=== PATIENT | female | born 1940 | race Caucasian/White ===

== ENCOUNTER 2021-01-13 17:14 | Emergency (ER) | payer MEDICARE, BC ==
[~2021-01-13] VITALS: Ht 152.4 cm; Wt 62.0 kg
[2021-01-13 18:59] LABS: BASOPHILS % (AUTO) 0.4 % (0-1); EOSINOPHILS # (AUTO) 0.2 X10'3 (0-0.9); EOSINOPHILS % (AUTO) 2.4 % (0-6); LYMPHOCYTES # (AUTO) 2.9 X10'3 (1.1-4.8); LYMPHOCYTES % (AUTO) 45.1 % (21-51); MEAN CORPUSCULAR HEMOGLOBIN 30.5 PG (27.0-31.0); MEAN CORPUSCULAR HGB CONC 33.3 g/dL (33.0-36.5); MEAN CORPUSCULAR VOLUME 91.4 FL (78-98); MEAN PLATELET VOLUME 8.4 FL (7.4-10.4); MONOCYTES # (AUTO) 0.8 X10'3 (0-0.9); MONOCYTES % (AUTO) 12.2 % (2-12); NEUTROPHILS # (AUTO) 2.6 X10'3 (1.8-7.7); NEUTROPHILS % (AUTO) 39.9 % (42-75); PLATELET COUNT 235 X10'3 (140-440); RED BLOOD COUNT 4.59 X10'6 (4.20-5.60); RED CELL DISTRIBUTION WIDTH 13.6 % (11.5-14.5); WHITE BLOOD COUNT 6.4 X10'3 (4.5-11.0)
[2021-01-13 19:13] LABS: ALANINE AMINOTRANSFERASE 19 U/L (12-78); ALBUMIN 3.7 G/DL (3.4-5.0); ALBUMIN/GLOBULIN RATIO 1.2 (1.1-1.5); ALKALINE PHOSPHATASE 102 IU/L (46-116); ANION GAP 13 (8-16); ASPARTATE AMINO TRANSFERASE 18 U/L (10-37); BILIRUBIN,TOTAL 0.3 MG/DL (0.1-1.0); BLOOD UREA NITROGEN 25 MG/DL (7-18); BUN/CREATININE RATIO 29.4 (6.6-38.0); CALCIUM 9.1 MG/DL (8.5-10.1); CHLORIDE 103 MMOL/L (99-107); CREATININE 0.85 MG/DL (0.40-0.90); GLUCOSE 106 MG/DL (70-104); POTASSIUM 3.8 MMOL/L (3.5-5.1); SODIUM 140 MMOL/L (135-145); TOTAL CARBON DIOXIDE 24.5 MMOL/L (24-32); TOTAL PROTEIN 6.9 G/DL (6.4-8.2); eGFR 64 ML/MIN
[2021-01-13 21:03] VITALS: BP 158/88
== END 2021-01-13 21:04 | disposition home or self-care (01) ==
LOC: ER 17:14
DX: R42 Dizziness and giddiness (principal); R55 Syncope and collapse; I10 Essential (primary) hypertension; Z95.0 Presence of cardiac pacemaker
CPT/HCPCS: 36415; 71045; 80053; 83880; 84484; 85025; 93005; 99285

== ENCOUNTER 2021-04-26 04:25 | Emergency (ER) | payer MEDICARE, BC ==
[~2021-04-26] VITALS: Ht 160 cm; Wt 64.0 kg
[2021-04-26 06:26] LABS: BASOPHILS % (AUTO) 0.7 % (0-1); EOSINOPHILS # (AUTO) 0.2 X10'3 (0-0.9); EOSINOPHILS % (AUTO) 2.9 % (0-6); HEMATOCRIT 40.2 % (35.0-45.0); HEMOGLOBIN 13.5 g/dl (12.0-16.0); LYMPHOCYTES # (AUTO) 1.8 X10'3 (1.1-4.8); MEAN CORPUSCULAR HEMOGLOBIN 30.9 PG (27.0-31.0); MEAN CORPUSCULAR HGB CONC 33.6 g/dL (33.0-36.5); MEAN CORPUSCULAR VOLUME 91.9 FL (78-98); MEAN PLATELET VOLUME 8.6 FL (7.4-10.4); MONOCYTES # (AUTO) 0.6 X10'3 (0-0.9); MONOCYTES % (AUTO) 11.1 % (2-12); NEUTROPHILS # (AUTO) 2.6 X10'3 (1.8-7.7); NEUTROPHILS % (AUTO) 50.3 % (42-75); PLATELET COUNT 228 X10'3 (140-440); RED BLOOD COUNT 4.37 X10'6 (4.20-5.60); RED CELL DISTRIBUTION WIDTH 13.7 % (11.5-14.5); WHITE BLOOD COUNT 5.2 X10'3 (4.5-11.0)
[2021-04-26 06:35] LABS: ALANINE AMINOTRANSFERASE 65 U/L (12-78); ALBUMIN 3.8 G/DL (3.4-5.0); ALBUMIN/GLOBULIN RATIO 1.2 (1.1-1.5); ALKALINE PHOSPHATASE 98 IU/L (46-116); ANION GAP 10 (8-16); ASPARTATE AMINO TRANSFERASE 29 U/L (10-37); BILIRUBIN,TOTAL 0.7 MG/DL (0.1-1.0); BLOOD UREA NITROGEN 18 MG/DL (7-18); BUN/CREATININE RATIO 20.5 (6.6-38.0); CHLORIDE 107 MMOL/L (99-107); CREATININE 0.88 MG/DL (0.40-0.90); GLUCOSE 98 MG/DL (70-104); POTASSIUM 4.1 MMOL/L (3.5-5.1); SODIUM 144 MMOL/L (135-145); TOTAL CARBON DIOXIDE 26.8 MMOL/L (24-32); TOTAL PROTEIN 7.1 G/DL (6.4-8.2); eGFR 61 ML/MIN
[2021-04-26 07:36] VITALS: BP 175/95
== END 2021-04-26 07:37 | disposition home or self-care (01) ==
LOC: ER 04:26
DX: R00.2 Palpitations (principal); I10 Essential (primary) hypertension; I25.2 Old myocardial infarction; I48.91 Unspecified atrial fibrillation; Z95.0 Presence of cardiac pacemaker
CPT/HCPCS: 36415; 71045; 80053; 83880; 84484; 85025; 93005; 99285

== ENCOUNTER 2022-01-16 05:30 | Day surgery (SDC) | payer MEDICARE, BC ==
[2022-01-09 11:00] LABS: BASOPHILS % (AUTO) 0.5 % (0-1); EOSINOPHILS # (AUTO) 0.1 X10'3 (0-0.9); EOSINOPHILS % (AUTO) 1.8 % (0-6); LYMPHOCYTES % (AUTO) 34.7 % (21-51); MEAN CORPUSCULAR HEMOGLOBIN 29.6 PG (27.0-31.0); MEAN CORPUSCULAR HGB CONC 33.3 g/dL (33.0-36.5); MEAN PLATELET VOLUME 8.3 FL (7.4-10.4); MONOCYTES # (AUTO) 0.5 X10'3 (0-0.9); MONOCYTES % (AUTO) 9.6 % (2-12); NEUTROPHILS % (AUTO) 53.4 % (42-75); PRE OP HEMATOCRIT 40.7 % (35.0-45.0); PRE OP HEMOGLOBIN 13.5 g/dL (12.0-16.0); PRE OP PLATELET COUNT 253 X10'3 (140-440); RED BLOOD COUNT 4.57 X10'6 (4.20-5.60); RED CELL DISTRIBUTION WIDTH 14.5 % (11.5-14.5)
[2022-01-09 11:14] LABS: APTT 28 SECONDS (22-32)
[2022-01-09 11:59] LABS: ALBUMIN 4.3 G/DL (3.4-5.0); ALBUMIN/GLOBULIN RATIO 1.4 (1.1-1.5); ALKALINE PHOSPHATASE 104 IU/L (46-116); BLOOD UREA NITROGEN 16 MG/DL (7-18); BUN/CREATININE RATIO 23.9 (6.6-38.0); CALCIUM 9.2 MG/DL (8.5-10.1); CHLORIDE 103 MMOL/L (99-107); CREATININE 0.67 MG/DL (0.40-0.90); PRE OP ALT 32 U/L (30-65); PRE OP ANION GAP 11 (8-16); PRE OP AST 30 U/L (10-37); PRE OP BILIRUB, TOTAL 0.7 MG/DL (0.0-1.0); PRE OP GLUCOSE 90 MG/DL (70-104); PRE OP POTASSIUM 4.6 MMOL/L (3.4-5.1); PRE OP SODIUM 140 MMOL/L (135-145); TOTAL CARBON DIOXIDE 25.6 MMOL/L (24-32); TOTAL PROTEIN 7.3 G/DL (6.4-8.2); eGFR 84 ML/MIN
[~2022-01-16] VITALS: Ht 160 cm; Wt 64.4 kg
[2022-01-16] VITALS (9 sets, daily range): BP systolic 159–171; BP diastolic 77–95
[~2022-01-16 05:30] MED LIST: AMLO2.5T5 PO; APIX5TAB3 PO; ATOR20TA66 PO; DOCUMENT DATE & TIME OF BETA-BLOCKER PO ONE; FLAX10007 PO; LATA2.5D14 EACHEYE; LEVO-144 PO; LISI10TA27 PO; METO-411 PO; NITR0.4T48 SL; POTA20TA34 PO; UBID10CA4 PO; cefazolin/dext.iso 2gm/50ml IV ONE; famotidine 20mg tablet PO ONE; ringers solution, lacted 1,000 ML IV SCH
[2022-01-16] MEDS ORDERED: LIDOcaine 1% (10mg/ml) 2ml vial ONE (05:55)
[2022-01-16] MEDS ORDERED: BUPIVAcaine 0.5% inj/PF 30 ml vial IJ ONE (07:00)
[2022-01-16] MEDS ORDERED: BUPIVAcaine 0.5% inj/PF 30 ML ONE (07:03)
[2022-01-16] MEDS ORDERED: morphine 2 MG/ML inj. syringe IV PRN ×2 (07:05→08:10)
[2022-01-16] MEDS ORDERED: ringers solution, lacted 1,000 ML IV SCH ×2 (07:05→08:10)
[2022-01-16] MEDS ORDERED: hydrALAZINE 20mg/ml inj. IV PRN (07:05)
[2022-01-16] MEDS ORDERED: labetalol 20mg/4ml (5mg/ml) syringe IV PRN (07:05)
[2022-01-16] MEDS ORDERED: fentaNYL/PF 50MCG/1 ML 2ML syringe IV PRN ×2 (07:05)
[2022-01-16] MEDS ORDERED: ondansetron/PF 4mg/2ml inj IV PRN ×2 (07:05→08:10)
[2022-01-16] MEDS ORDERED: morphine 4 MG/ML inj SYRINge IV PRN ×2 (07:05→08:10)
[2022-01-16] MEDS ORDERED: LIDOcaine 0.5% (5mg/ml) 50ml vial ONE (07:15)
[2022-01-16] MEDS ORDERED: FENTANYL CITRATE/PF 50 MCG/1 ML VIAL ONE (07:18)
[2022-01-16] MEDS ORDERED: MIDAZolam 1 MG/ML 5ML VIAL ONE (07:20)
--- NOTE | 2022-01-16 07:50 | NUR ---
Received from OR via BED, accompanied by Anesthesiologist and report given by Anesthesiologist. PATIENT WAKING UP, NO S/S OF PAIN, V/S WNL, SCD ON, 20G TO LUE, RIGHT WRIST DRESSING CDI W/ SLING. ICE AND ELEVATED RUE.
[2022-01-16] MEDS ORDERED: meperidine/PF 25mg/ml syringe IV PRN ×3 (08:10)
[2022-01-16] MEDS ORDERED: proCHLORperazine 10 MG/2 ml inj IV PRN (08:10)
--- NOTE | 2022-01-16 09:00 | NUR ---
PATIENT A&OX4, DENIES PAIN, V/S WNL, SCD OFF, 20G TO LUE D/C, RIGHT WRIST DRESSING CDI W/ SLING. ICE AND ELEVATED RUE. I HAVE REVIEWED D/C INSTRUCTIONS WITH PATIENT AND FAMILY AND THEY HAVE VERBALIZED UNDERSTANDING. PATIENT D/C HOME WITH ALL BELONGINGS AND GAVE TRANSPORT.
--- NOTE | 2022-01-16 10:34 | NUR ---
PIV INFILTRATED TO RIGHT HAND DOWN IN CT WHEN CONTRAST WAS ATTEMPTED TO INFUSE. PIV WAS REMOVED WITHOUT COMPLICATION HOWEVER THERE IS EDEMA IN HAND TO WRIST ON RIGHT ARM. NEW PIV STARTED 20G RIGHT AC. COMPRESS PLACED ON RIGHT ARM AND ELEVATED ON 2 PILLOWS. Addendum: 01/16/22 at 1036 by Joel Todd RN DISREGARD NOTE- DIFFRENT PATIENT
== END 2022-01-16 09:00 | disposition home or self-care (01) ==
LOC: PAS 05:30
PROVIDERS: ATTEND Orthopaedic Surgery Hand Surgery
DX: G56.01 Carpal tunnel syndrome, right upper limb (principal); I10 Essential (primary) hypertension; M19.90 Unspecified osteoarthritis, unspecified site; I48.91 Unspecified atrial fibrillation; Z20.822 Contact with and (suspected) exposure to COVID-19; Z79.01 Long term (current) use of anticoagulants; Z79.899 Other long term (current) drug therapy; Z90.710 Acquired absence of both cervix and uterus; Z98.890 Other specified postprocedural states; Z95.0 Presence of cardiac pacemaker; Z90.12 Acquired absence of left breast and nipple; Z72.89 Other problems related to lifestyle; Z86.73 Personal history of transient ischemic attack (TIA), and cerebral infarction without residual deficits; Z85.3 Personal history of malignant neoplasm of breast; Z85.828 Personal history of other malignant neoplasm of skin; Z86.19 Personal history of other infectious and parasitic diseases; Z82.49 Family history of ischemic heart disease and other diseases of the circulatory system
CPT/HCPCS: 36415; 64721; 80053; 82948; 85025; 85610; 85730; J2250; J3010; J3490; J7030; J7120; S0020; U0003; U0005; Z7506; Z7512; A4215; J0690

== ENCOUNTER 2025-02-03 09:48 | Day surgery (SDC) | payer MEDICARE, BC ==
[2025-01-30 11:00] LABS: BASOPHILS % (AUTO) 0.7 % (0-1); EOSINOPHILS # (AUTO) 0.1 X10'3 (0-0.9); EOSINOPHILS % (AUTO) 2.1 % (0-6); HEMOGLOBIN 11.9 g/dl (12.0-16.0); LYMPHOCYTES # (AUTO) 1.4 X10'3 (1.1-4.8); LYMPHOCYTES % (AUTO) 31.7 % (21-51); MEAN CORPUSCULAR HEMOGLOBIN 28.6 PG (27.0-31.0); MEAN CORPUSCULAR HGB CONC 32.1 g/dL (33.0-36.5); MEAN CORPUSCULAR VOLUME 89.3 FL (78-98); MEAN PLATELET VOLUME 8.5 FL (7.4-10.4); MONOCYTES # (AUTO) 0.5 X10'3 (0-0.9); MONOCYTES % (AUTO) 11.3 % (2-12); NEUTROPHILS # (AUTO) 2.4 X10'3 (1.8-7.7); NEUTROPHILS % (AUTO) 54.2 % (42-75); PLATELET COUNT 252 X10'3 (140-440); RED BLOOD COUNT 4.15 X10'6 (4.20-5.60); RED CELL DISTRIBUTION WIDTH 15.7 % (11.5-14.5); WHITE BLOOD COUNT 4.5 X10'3 (4.5-11.0)
[2025-01-30 11:15] LABS: APTT 29 SECONDS (22-32); INR 1.1 INR; PROTHROMBIN TIME 11.3 SECONDS (9.0-12.0)
[2025-01-30 11:26] LABS: ALBUMIN 3.9 G/DL (3.4-5.0); ANION GAP 6 (8-16); BLOOD UREA NITROGEN 15 MG/DL (7-18); BUN/CREATININE RATIO 21.4 (10.0-20.0); CALCIUM 8.9 MG/DL (8.5-10.1); CHLORIDE 106 MMOL/L (99-107); CHOL/HDL RATIO 2.1 (0.00-4.99); CHOLESTEROL 146 MG/DL (0-200); GLUCOSE 82 MG/DL (70-104); HDL CHOLESTEROL 70 MG/DL (35-60); LDL CHOLESTEROL 61 MG/DL (50-100); POTASSIUM 4.3 MMOL/L (3.5-5.1); SODIUM 141 MMOL/L (135-145); TOTAL CARBON DIOXIDE 29.5 MMOL/L (24-32); TRIGLYCERIDES 53 MG/DL (20-135); eGFR 79 ML/MIN
[~2025-02-03] VITALS: Ht 160 cm; Wt 62.8 kg
[2025-02-03] VITALS (9 sets, daily range): BP systolic 153–207; BP diastolic 81–110; PULSE 62–72; RESP 16; TEMP 98.1; O2SAT 92–96
[~2025-02-03 09:48] MED LIST changes: -DOCUMENT DATE & TIME OF BETA-BLOCKER PO ONE; -cefazolin/dext.iso 2gm/50ml IV ONE; -famotidine 20mg tablet PO ONE; -ringers solution, lacted 1,000 ML IV SCH
[2025-02-03] MEDS: diphenhydrAMINE 25mg capsule PO PRN (11:26)
[2025-02-03] MEDS: LORazepam 0.5 MG tablet PO PRN (11:26)
[2025-02-03] MEDS: normal saline 1,000 ML IV SCH (11:28)
[2025-02-03] MEDS ORDERED: SACU1TAB PO (11:44)
[2025-02-03] MEDS ORDERED: BUSP5TAB3 PO (11:44)
[2025-02-03] MEDS ORDERED: MULT-1085 PO (11:44)
[2025-02-03] MEDS ORDERED: fentaNYL/PF 50MCG/1 ML 2ML syringe ONE (12:37)
[2025-02-03] MEDS ORDERED: verapamil 2.5 mg/ml inj IV ONE (12:37)
[2025-02-03] MEDS ORDERED: heparin 1,000unit/ml 10ml vial 10 ML ONE (12:37)
[2025-02-03] MEDS ORDERED: midazolam 1 mg/ML 2ml injection ONE (12:37)
[2025-02-03] MEDS ORDERED: iohexol 350MG/ML 100ml bottle IV ONE (12:37)
[2025-02-03] MEDS ORDERED: LIDOcaine 1% (10mg/ml) 2ml vial ONE (12:37)
[2025-02-03] MEDS ORDERED: nitroGLYCERIN 500mcg/5mL D5W 5 ML IV ONE (12:41)
[2025-02-03] MEDS ORDERED: LIDOcaine 1% 30ml preserv. free vial ONE (13:17)
[2025-02-03] MEDS ORDERED: iohexol 350 MG/ML 50ML vial IV ONE (13:35)
[2025-02-03 13:36] LABS: ISTAT HGB ART 10.9 g/dl (12.0-16.0); ISTAT Hct ART 32 %PCV (35-45); ISTAT O2 SATURATION ARTERIAL 81 % (95-98); ISTAT SOURCE ART
[2025-02-03 14:17] LABS: ISTAT HGB MIX 10.9 g/dl (12.0-16.0); ISTAT Hct MIX 32 %PCV (35-45); ISTAT O2 SATURATION MIX VENOUS 57 % (60-80); ISTAT SOURCE VEN
[2025-02-03] MEDS ORDERED: HYDROcodone/acetaminophen 10/325mg tab PO PRN (14:45)
[2025-02-03] MEDS ORDERED: HYDROcodone/acetaminophen 5mg/325mg tablet PO PRN (14:45)
[2025-02-03] MEDS: sacubitril/valsartan 24mg-26mg tablet PO SCH (15:36)
[2025-02-04] MEDS ORDERED: metoprolol succinate 25mg (24-HOUR) SR. Tablet PO SCH (08:00)
== END 2025-02-03 16:30 | disposition home or self-care (01) ==
LOC: SSTAY O 09:48
PROVIDERS: ATTEND Student in an Organized Health Care Education/Training Program
DX: I35.0 Nonrheumatic aortic (valve) stenosis (principal); I25.10 Atherosclerotic heart disease of native coronary artery without angina pectoris; I10 Essential (primary) hypertension; E78.5 Hyperlipidemia, unspecified; I49.5 Sick sinus syndrome; Z79.01 Long term (current) use of anticoagulants; Z90.81 Acquired absence of spleen; Z79.82 Long term (current) use of aspirin; Z98.890 Other specified postprocedural states; Z85.828 Personal history of other malignant neoplasm of skin
CPT/HCPCS: 36415; 80048; 80061; 82803; 85014; 85025; 85610; 85730; 93005; 93456; A6258; A6402; C1751; C1894; J1644; J2003; J2250; J3010; J3490; J7030; Q0163; Q9967; Z7610; 99152; 99153

== ENCOUNTER 2025-03-12 08:11 | Outpatient (CLI) | payer MEDICARE, BC ==
[~2025-03-12 08:11] MED LIST changes: -AMLO2.5T5 PO; +BUSP5TAB3 PO; +IODIXANOL 320 MG/ML INFUS..BTL 100ML IV ONE; -LISI10TA27 PO; +MULT-1085 PO; +SACU1TAB PO
[2025-03-12 08:57] LABS: APTT 29 SECONDS (22-32); INR 1.1 INR; PROTHROMBIN TIME 11.4 SECONDS (9.0-12.0)
[2025-03-12 09:07] LABS: ALANINE AMINOTRANSFERASE 24 U/L (12-78); ALBUMIN 3.8 G/DL (3.4-5.0); ALBUMIN/GLOBULIN RATIO 1.4 (1.1-1.5); ALKALINE PHOSPHATASE 91 IU/L (46-116); ANION GAP 6 (8-16); ASPARTATE AMINO TRANSFERASE 20 U/L (10-37); BILIRUBIN,TOTAL 0.6 MG/DL (0.1-1.0); BLOOD UREA NITROGEN 20 MG/DL (7-18); BUN/CREATININE RATIO 26.7 (10.0-20.0); CALCIUM 8.6 MG/DL (8.5-10.1); CHLORIDE 105 MMOL/L (99-107); CREATININE 0.75 MG/DL (0.40-0.90); GLUCOSE 72 MG/DL (70-104); POTASSIUM 4.1 MMOL/L (3.5-5.1); PRO BRAIN NATRIURETIC PEPTIDE 824 PG/ML (0-450); SODIUM 140 MMOL/L (135-145); TOTAL CARBON DIOXIDE 28.8 MMOL/L (24-32); TOTAL PROTEIN 6.6 G/DL (6.4-8.2); eGFR 73 ML/MIN
[2025-03-12 09:20] LABS: BASOPHILS % (AUTO) 1.2 % (0-1); EOSINOPHILS # (AUTO) 0.1 X10'3 (0-0.9); EOSINOPHILS % (AUTO) 3.1 % (0-6); HEMATOCRIT 36.5 % (35.0-45.0); LYMPHOCYTES # (AUTO) 1.1 X10'3 (1.1-4.8); LYMPHOCYTES % (AUTO) 28.2 % (21-51); MEAN CORPUSCULAR HEMOGLOBIN 28.7 PG (27.0-31.0); MEAN CORPUSCULAR HGB CONC 32.8 g/dL (33.0-36.5); MEAN CORPUSCULAR VOLUME 87.4 FL (78-98); MEAN PLATELET VOLUME 8.4 FL (7.4-10.4); MONOCYTES # (AUTO) 0.5 X10'3 (0-0.9); MONOCYTES % (AUTO) 12.9 % (2-12); NEUTROPHILS # (AUTO) 2.1 X10'3 (1.8-7.7); NEUTROPHILS % (AUTO) 54.6 % (42-75); PLATELET COUNT 214 X10'3 (140-440); RED BLOOD COUNT 4.17 X10'6 (4.20-5.60); RED CELL DISTRIBUTION WIDTH 16.1 % (11.5-14.5); WHITE BLOOD COUNT 3.8 X10'3 (4.5-11.0)
--- NOTE | 2025-03-12 09:21 | RADIOLOGY REPORT ---
DI CHEST,TWO VIEWS CLINICAL HISTORY: TAVR, SOB COMPARISON: None TECHNIQUE: Frontal and lateral view of the chest was obtained FINDINGS: Lines and Tubes: Left-sided dual lead pacemaker Lungs: No focal consolidation. Pleura: No effusion. No pneumothorax. Cardiomediastinal contours: Unremarkable Bones: No acute osseous abnormality. IMPRESSION: No acute cardiopulmonary disease.
--- NOTE | 2025-03-13 14:27 | RADIOLOGY REPORT ---
Procedure: CT CTA TAVR Reason for study/Clinical History: Chest pain, evaluate for dissection. Comparison Study: None available at time of dictation. Exam Date: 03/12/2025 10:22 AM TECHNIQUE: Multiplanar reformatted images were generated from volumetric data acquired on a multidetector CT [facility]. Cardiac gating was utilized. Arterial phase images were obtained through the chest, abdomen and pelvis following intravenous administration of contrast material. 100 mL visipaque [address] dose reduction techniques were utilized. 3-D reconstructions were performed on an independent work station. Radiation Dose Information: CT Dose: CTDI volume is 65 mGy. Dose-length product is 1809 mGy*cm FINDINGS: Vascular: Aortic measurements: Aortic annulus: 25.9 x 21.6 mm Sinus of valsalva: right cusp 27.5 mm, left cusp 28.1 mm, non-coronary cusp 26.4 mm Right coronary distance: 12.1 Left coronary distance: 11.9 ST junction 24.2 mm Ascending aorta 33.4 mm Aortic arch 21 mm Descending aorta 23 mm Aortic hiatus 21 mm Upper abdominal aorta 18 mm Minimal abdominal aorta 11.4 mm Right common iliac 5.43 mm, tortuosity index 1.01 Left common iliac 5.68 mm, tortuosity index 1.11 There is normal caliber of aorta. No aortic dissection. Aortic arch anatomy is conventional. There is conventional coronary artery anatomy. Diffuse calcified atherosclerotic disease. No central pulmonary embolism. There is normal dimension of the main pulmonary artery. Heart is normal. There are no intracardiac filling defects. No pericardial effusion. Mediastinum: Subcentimeter mediastinal lymph nodes. Lungs: Streaky atelectasis and consolidation in the lung bases. Patchy ground-glass opacities in both lungs. Pleura: No effusion or pneumothorax. Chest wall: No acute abnormality. Abdomen and Pelvis: Liver: Normal in appearance. Gallbladder: Normal in appearance. Spleen: Normal in appearance. Pancreas: Normal in appearance. Adrenals: Normal in appearance. Kidneys: Normal in appearance. Bowel: Moderate sliding-type hiatal hernia. Sigmoid diverticulosis. No evidence of obstruction. Peritoneum: No free air or free fluid. Lymph nodes: No lymphadenopathy by CT size criteria. Pelvic structures: No pelvic mass. Bones: Dextroscoliosis with associated multilevel moderate to advanced degenerative disease. IMPRESSION: 1. TAVR planning with vascular measurements as described above. 2. Streaky atelectasis and consolidation in the lung bases. Patchy ground-glass opacities in both nils ngs. Consider follow-up chest CT in 3-6 months. Moderate size sliding-type hiatal hernia. Sigmoid di verticulosis. HS:Y
== END 2025-03-12 23:59 | disposition home or self-care (01) ==
LOC: RAD 08:11
PROVIDERS: ATTEND Internal Medicine Cardiovascular Disease
DX: K57.30 Diverticulosis of large intestine without perforation or abscess without bleeding (principal); I35.0 Nonrheumatic aortic (valve) stenosis; R06.02 Shortness of breath; I65.29 Occlusion and stenosis of unspecified carotid artery; K44.9 Diaphragmatic hernia without obstruction or gangrene; M41.86 Other forms of scoliosis, lumbar region; J98.11 Atelectasis; J18.1 Lobar pneumonia, unspecified organism; M51.34 Other intervertebral disc degeneration, thoracic region
CPT/HCPCS: 36415; 71046; 71275; 74174; 75572; 80053; 83880; 85025; 85610; 85730; Q9967

== ENCOUNTER 2025-03-19 08:11 | Outpatient (CLI) | payer MEDICARE, BC ==
[~2025-03-19 08:11] MED LIST changes: -IODIXANOL 320 MG/ML INFUS..BTL 100ML IV ONE
== END 2025-03-20 23:59 | disposition home or self-care (01) ==
LOC: TAVR 08:11
PROVIDERS: ATTEND Internal Medicine Cardiovascular Disease
DX: I35.0 Nonrheumatic aortic (valve) stenosis (principal); R06.02 Shortness of breath; I65.29 Occlusion and stenosis of unspecified carotid artery

== ENCOUNTER 2025-08-17 23:47 | Emergency (ER) | payer MEDICARE, BC ==
[~2025-08-17] VITALS: Ht 160 cm; Wt 56.8 kg
[~2025-08-17 23:47] MED LIST changes: -FLAX10007 PO; +FURO-150 PO; -LATA2.5D14 EACHEYE; +LATA2.5D7 EACHEYE; -LEVO-144 PO; +LEVO50TA8 PO
[2025-08-18 00:27] LABS: MEAN PLATELET VOLUME 8.2 FL (7.4-10.4); RED CELL DISTRIBUTION WIDTH 15.2 % (11.5-14.5)
[2025-08-18] MEDS: tranexamic acid 100mg/ml inj. TP STA (00:29)
[2025-08-18 00:34] LABS: APTT 29 SECONDS (22-32); INR 1.1 INR
[2025-08-18 00:47] LABS: CREATININE 0.82 MG/DL (0.40-0.90); TOTAL CARBON DIOXIDE 28.6 MMOL/L (24-32)
[2025-08-18 00:48] LABS: eCRCL 40 ML/MIN; eGFR 66 ML/MIN
[2025-08-18] MEDS: cocaine 4% topical solution 4ml bottle MM ONE (02:26)
[2025-08-18 03:27] VITALS: BP 124/78; PULSE 78; RESP 18; TEMP 98.6; O2SAT 98
--- NOTE | 2025-08-18 03:29 | Physician Documentation ---
History of Present Illness ~ Chief Complaint: Nose bleed Stated Complaint: BLOODY NOSE A BLS Time Seen by MD: 00:45 Primary Medical Doctor: Dr. Zuniga cardiology Mode of Arrival: EMS HPI Patient is here for a nosebleed. Started about an hour prior to arrival. Bleeding from the right nostril. She is on Eliquis for chronic AFib. No trauma. Medication Reconciliation Allergies: Coded Allergies: No Known Allergies (Unverified , 01/13/21) Scheduled Apixaban (Eliquis), 1 TAB PO BID, (Reported) Atorvastatin Calcium (Atorvastatin Calcium), 1 TAB PO DAILY, (Reported) Buspirone Hcl* (Buspar*), 1 TAB PO DAILY Levothyroxine Sodium (Levothyroxine Sodium), 1 TAB PO DAILY, (Reported) Metoprolol Succinate (Metoprolol Succinate), 1.5 TAB PO HS, (Reported) Multivitamin (Multi Vitamin Daily), 1 TAB PO DAILY, (Reported) Nitroglycerin (Nitroglycerin), 1 TAB SL PRN, (Reported) Potassium Bicarbonate/Cit AC (Effer-K 20 Meq Tablet Eff), 1 TAB PO DAILY, (Reported) Sacubitril/Valsartan (Entresto 24 mg-26 mg Tablet), 1 TAB PO BID, (Reported) Ubidecarenone (Co Q-10), 1 CAP PO DAILY, (Reported) Scheduled PRN Furosemide (Lasix), 1 TAB PO DAILY PRN for SOB or wheezing Miscellaneous Medications Latanoprost (Latanoprost), EACHEYE, (Reported) Discontinued Medications Flaxseed (Flaxseed Oil), 1 CAP PO DAILY, (Reported) Discontinued Reason: patient no longer taking Past Medical History Past Medical History: Atrial Fibrillation, Hypertension Past Surgical History: pacemaker Smoking Status: Never smoker Alcohol Use: None Drug Use: none Lives with: Spouse Lives In: Home Occupation: retired Physical Exam Vital Signs: Temperature: 98.6, Source: Temporal, Heart Rate: 82, Respiratory Rate: 18, BP: 126/82, Pulse Oximetry: 98, Weight: 56.820 Oxygen Flow Rate: 0 Physical Exam General: Awake and Alert, no acute distress. HEENT: Conjunctiva pink, Sclera clear, she has a nasal clamp on fairly good hemostasis there is a small blood vessel the to the anterior septum on the right side that is slowly bleeding. Neck: Supple Resp: Unlabored. Heart: Good perfusion Abdomen: Nondistended Extremities: No cyanosis,clubbing or edema. Skin: Warm and Dry. Neuro: no focal deficits Progress Results/Orders Results/Orders Completed Orders - YANG PAGAN MD Cbc/Diff (08/17/25 23:49) Pt Inr (08/17/25 23:49) PTT (08/17/25 23:49) CMP (08/17/25 23:49) Tranexamic Acid Inj. (Cyklokapron Inj.) (08/18/25 00:03) Silver Nitrate Applicator (Silver Nitrat (08/18/25 01:35) Cocaine 4% Topical Solution (Cocaine 4% (08/18/25 01:50) Medications Received in ER Medications (Trade) Dose Ordered Sig/Vangie Route PRN Reason Start Time Stop Time Status Last Admin Dose Admin (Cyklokapron inj.) 500 mg ONCE STAT TP 08/18/25 00:03 08/18/25 00:06 DC 08/18/25 00:29 500 MG Vital Signs 08/17/25 08/18/25 08/18/25 23:55 01:17 02:01 Temp 98.1 98.6 Pulse 99 82 Resp 16 18 B/P (MAP) 144/96 126/82 (97) Pulse Ox 96 98 O2 Flow Rate 0 Laboratory Tests Test 08/18/25 00:05 White Blood Count 5.4 Red Blood Count 4.19 L Hemoglobin 13.0 Hematocrit 38.2 Mean Corpuscular Volume 91.1 Mean Corpuscular Hemoglobin 31.0 Mean Corpuscular Hemoglobin Concent 34.0 Red Cell Distribution Width 15.2 H Platelet Count 221 Mean Platelet Volume 8.2 Neutrophils (%) (Auto) 51.2 Lymphocytes (%) (Auto) 32.3 Monocytes (%) (Auto) 13.4 H Eosinophils (%) (Auto) 2.4 Basophils (%) (Auto) 0.7 Neutrophils # (Auto) 2.7 Lymphocytes # (Auto) 1.7 Monocytes # (Auto) 0.7 Eosinophils # (Auto) 0.1 Basophils # (Auto) 0.0 CBC Comment Prothrombin Time 11.0 INR International Normalized Ratio 1.1 Activated Partial Thromboplast Time 29 Coagulation Comments Sodium Level 141 Potassium Level 4.2 Chloride Level 107 Carbon Dioxide Level 28.6 Anion Gap 5 L Blood Urea Nitrogen 30 H Creatinine 0.82 Estimated GFR/1.73 m2 66 BUN/Creatinine Ratio 36.6 H Glucose Level 117 H Calcium Level 8.7 Total Bilirubin 0.8 Aspartate Amino Transf (AST/SGOT) 25 Alanine Aminotransferase (ALT/SGPT) 47 Alkaline Phosphatase 139 H Total Protein 6.2 L Albumin 3.2 L Globulin 3.0 Albumin/Globulin Ratio 1.1 Chemistry Comments Medical Decision Making Findings Patient is here for epistaxis she is on Eliquis. Initially had the staff placed TXA on a cotton ball in her nostril while I was doing a procedure. So when I went to evaluate her she was bleeding but very slowly. I could see the blood vessel that has bleeding the anterior septum of the right nostril. So I anesthetized this area with topical cocaine. I then cauterized it with silver nitrate. This provided good hemostasis. Patient waited for 1/2 hour after hemostasis was achieved and then she is ambulatory and re-evaluation she is not bleeding and was discharged home. She was sent home with a nasal clamp to use for 30 minutes if she rebleeds. This is not an indication to stop her Eliquis. She had labs ordered at triage she will reassuring. She has a fan at night likely drying out her mucosa. Recommend that she keep the mucosa moist we talked about ways to do that. Departure Disposition: 01 HOME / SELF CARE / HOMELESS Impression: Primary Impression: Epistaxis Condition: Improved Discharge Instructions: Nosebleed, Adult Referrals: NO PRIMARY CARE PROVIDER (PCP) Education Educated: Patient Educated regarding: diagnosis, treatment, prognosis Signature Scribe Signature: no scribe Attestation: no YANG Bond MD Aug 18, 2025 03:28
== END 2025-08-18 03:40 | disposition home or self-care (01) ==
LOC: ER 23:48
DX: R04.0 Epistaxis (principal); I48.91 Unspecified atrial fibrillation; I10 Essential (primary) hypertension; Z88.8 Allergy status to other drugs, medicaments and biological substances; Z95.0 Presence of cardiac pacemaker; Z79.899 Other long term (current) drug therapy
CPT/HCPCS: 36415; 80053; 85025; 85610; 85730; 99283; J3490; 30901; 99284

== ENCOUNTER 2025-08-20 17:33 | Emergency (ER) | payer MEDICARE, BC ==
[~2025-08-20] VITALS: Ht 160 cm; Wt 59.2 kg
[~2025-08-20 17:33] MED LIST changes: -LATA2.5D7 EACHEYE; -POTA20TA34 PO
[2025-08-20 17:45] VITALS: TEMP 96.5
[2025-08-20 20:27] LABS: MEAN PLATELET VOLUME 8.4 FL (7.4-10.4); RED CELL DISTRIBUTION WIDTH 15.3 % (11.5-14.5)
[2025-08-20 20:35] LABS: CREATININE 0.83 MG/DL (0.40-0.90); TOTAL CARBON DIOXIDE 27.2 MMOL/L (24-32); eCRCL 40 ML/MIN; eGFR 65 ML/MIN
[2025-08-20 20:37] LABS: INR 1.0 INR
--- NOTE | 2025-08-20 20:38 | Physician Documentation ---
History of Present Illness ~ Chief Complaint: Nose bleed Stated Complaint: BLOODY NOSE Time Seen by MD: 20:50 Primary Medical Doctor: Dr. Zuniga cardiology HPI This 85-year-old female who is currently on blood thinners presents to emergency department due to 1 hour of nosebleed, patient reports this is her 4th episode of bloody nose in the past 10 days, patient reports that she required cauterization on last visit. Patient reports no recent trauma to nose. Patient reports no difficulty breathing. History as above. She has had a nose clamp on since arrival which is a proximally 3-1/2 hours. She is concerned because she does not want this nosebleed to prevent her from a cardiac procedure later this month. Medication Reconciliation Allergies: Coded Allergies: No Known Allergies (Unverified , 08/20/25) Scheduled Apixaban (Eliquis), 1 TAB PO BID, (Reported) Atorvastatin Calcium (Atorvastatin Calcium), 40 MG PO HS, (Reported) Buspirone Hcl* (Buspar*), 1 TAB PO DAILY Levothyroxine Sodium (Levothyroxine Sodium), 1 TAB PO DAILY, (Reported) Metoprolol Succinate (Metoprolol Succinate), 1.5 TAB PO HS, (Reported) Multivitamin (Multi Vitamin Daily), 1 TAB PO DAILY, (Reported) Nitroglycerin (Nitroglycerin), 1 TAB SL PRN, (Reported) Sacubitril/Valsartan (Entresto 24 mg-26 mg Tablet), 1 TAB PO BID, (Reported) Ubidecarenone (Co Q-10), 1 CAP PO DAILY, (Reported) Scheduled PRN Furosemide (Lasix), 1 TAB PO DAILY PRN for SOB or wheezing Discontinued Medications Flaxseed (Flaxseed Oil), 1 CAP PO DAILY, (Reported) Discontinued Reason: patient no longer taking Past Medical History Past Medical History: Atrial Fibrillation, Hypertension Past Surgical History: pacemaker Alcohol Use: None Drug Use: none Lives with: Spouse Lives In: Home Occupation: retired Review of Systems ROS As stated above in the HPI, otherwise all systems are reviewed and negative. Physical Exam Vital Signs: Temperature: 96.5, Source: Temporal, Heart Rate: 97, Respiratory Rate: 18, BP: 159/95, Pulse Oximetry: 95, Weight: 59.200 Oxygen Flow Rate: 0 Physical Exam General: Patient is awake, alert, oriented x4 in no acute distress Head: Normocephalic and atraumatic. Eyes: Conjunctival normal. EOMI. PERRL. ENT: Mucous membranes moist. Dried blood in right Blank. No blood in posterior pharynx Neck: Supple, trachea is midline. Chest: Clear to auscultation bilaterally without rales, rhonchi, or wheezes. There is no accessory muscle use or retractions. Cardiac: RRR without murmurs, gallops, or rubs. Progress Results/Orders Results/Orders Completed Orders - CRUZ OCONNELL MD Cbc/Diff (08/20/25 19:57) BMP (08/20/25 19:57) Pt Inr (08/20/25 19:57) Vital Signs 08/20/25 08/20/25 08/20/25 17:45 20:08 20:48 Temp 96.5 Pulse 90 97 Resp 18 16 B/P (MAP) 140/83 159/95 (116) Pulse Ox 95 O2 Flow Rate 0 Laboratory Tests Test 08/20/25 20:12 White Blood Count 6.6 Red Blood Count 4.27 Hemoglobin 12.8 Hematocrit 39.7 Mean Corpuscular Volume 93.0 Mean Corpuscular Hemoglobin 29.9 Mean Corpuscular Hemoglobin Concent 32.1 L Red Cell Distribution Width 15.3 H Platelet Count 224 Mean Platelet Volume 8.4 Neutrophils (%) (Auto) 62.2 Lymphocytes (%) (Auto) 24.1 Monocytes (%) (Auto) 11.4 Eosinophils (%) (Auto) 1.5 Basophils (%) (Auto) 0.8 Neutrophils # (Auto) 4.1 Lymphocytes # (Auto) 1.6 Monocytes # (Auto) 0.8 Eosinophils # (Auto) 0.1 Basophils # (Auto) 0.1 CBC Comment Prothrombin Time 10.6 INR International Normalized Ratio 1.0 Coagulation Comments Sodium Level 142 Potassium Level 4.1 Chloride Level 106 Carbon Dioxide Level 27.2 Anion Gap 9 Blood Urea Nitrogen 26 H Creatinine 0.83 Estimated GFR/1.73 m2 65 BUN/Creatinine Ratio 31.3 H Glucose Level 96 Calcium Level 8.8 Albumin 3.7 Chemistry Comments Medical Decision Making Findings Patient presented to the emergency room with epistaxis as per HPI. Patient was stating she felt weak and dizzy therefore there was concern for possible anemia therefore labs ordered which was reassuring for no anemia. Patient has responded to clamping and that has no blood in the posterior pharynx. Conservative management of epistaxis at home discussed. Departure Disposition: HOME / SELF CARE / HOMELESS Impression: Primary Impression: Epistaxis Condition: Stable Discharge Instructions: Nosebleed, Adult Referrals: NO PRIMARY CARE PROVIDER (PCP) Signature Scribe Signature: No scribe Attestation: The note accurately reflects work and decisions made by me.Cruz Oconnell MD 08/20/25 21:00 ZOYA CALVILLO Aug 20, 2025 20:38 CRUZ OCONNELL MD Aug 20, 2025 21:00
[2025-08-20 22:30] VITALS: BP 137/86; PULSE 86; RESP 16; O2SAT 96
[2025-08-26] MEDS ORDERED: FURO20TA4 PO (11:41)
[2025-08-26] MEDS ORDERED: FURO-149 PO (11:41)
[2025-08-26] MEDS ORDERED: ATOR40TA72 PO (11:42)
[2025-08-26] MEDS ORDERED: BUSP5TAB3 PO (11:44)
[2025-08-26] MEDS ORDERED: NITR0.4T51 SL (11:47)
[2025-08-26] MEDS ORDERED: METO-395 PO (11:47)
== END 2025-08-20 22:31 | disposition home or self-care (01) ==
LOC: ER 17:33
DX: R04.0 Epistaxis (principal); I48.91 Unspecified atrial fibrillation; I10 Essential (primary) hypertension; Z95.0 Presence of cardiac pacemaker; Z79.01 Long term (current) use of anticoagulants; Z79.899 Other long term (current) drug therapy
CPT/HCPCS: 36415; 80048; 85025; 85610; 99283

== ENCOUNTER 2025-08-27 05:15 | Inpatient (IN) | payer MEDICARE, BC ==
[2025-08-19 11:35] LABS: LEUKOCYTE ESTERASE ,URINE NEGATIVE (Neg); NITRITES, URINE NEGATIVE (Neg); OCCULT BLOOD,URINE TRACE-INTACT (Neg)
[2025-08-19 11:37] LABS: MEAN PLATELET VOLUME 8.0 FL (7.4-10.4); PRE OP HEMATOCRIT 38.5 % (35.0-45.0); PRE OP HEMOGLOBIN 12.9 g/dL (12.0-16.0); PRE OP PLATELET COUNT 241 X10'3 (140-440); PRE OP WHITE BLOOD COUNT 4.6 10'3 (4.8-10.8); RED CELL DISTRIBUTION WIDTH 15.4 % (11.5-14.5)
[2025-08-19 11:45] LABS: UA COLLECTION TYPE NON-SPECIFIED
[2025-08-19 11:48] LABS: MUCUS STRANDS FEW /LPF (Neg); RENAL CELLS, URINE FEW /HPF; SQUAMOUS EPITHELIAL CELL,UR MANY /LPF (FEW)
--- NOTE | 2025-08-19 11:50 | ELECTROCARDIOGRAPH REPORT ---
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 Magno Zuniga Measurements Intervals [place] Rate: 68 P: 64 WI: 212 QRS: -73 QRSD: 146 T: 95 QT: 492 QTc: 524 Interpretive Statements A-V dual-paced rhythm with some inhibition No further analysis attempted due to paced rhythm Electronically Signed On 08-20-2025 5:55:[address] Mgano Zuniga Please click the below link to view image of tracing.
[2025-08-19 11:53] LABS: PRE OP INR 1.1 INR; PRE OP PARTIAL THROMB. TIME 27.0 SECONDS (22-32); PRE OP PROTIME 11.0 SECONDS (9.0-12.0)
[2025-08-19 12:07] LABS: CREATININE 0.74 MG/DL (0.40-0.90); PRE OP ALT 44 U/L (30-65); PRE OP ANION GAP 8 (8-16); PRE OP AST 28 U/L (10-37); PRE OP BILIRUB, TOTAL 0.9 MG/DL (0.0-1.0); PRE OP GLUCOSE 82 MG/DL (70-104); PRE OP POTASSIUM 4.4 MMOL/L (3.4-5.1); PRE OP SODIUM 143 MMOL/L (135-145); TOTAL CARBON DIOXIDE 28.6 MMOL/L (24-32); eGFR 74 ML/MIN
[2025-08-19 12:16] LABS: PRO BRAIN NATRIURETIC PEPTIDE 5403 PG/ML (0-450)
--- NOTE | 2025-08-19 12:38 | RADIOLOGY REPORT ---
DI CHEST,TWO VIEWS CLINICAL HISTORY: Pain COMPARISON: DI CHEST,SINGLE VIEW on DOS: 08/13/25, DI CHEST,TWO VIEWS on DOS: 03/12/25, CHEST,SINGLE VIEW on DOS: 04/26/21, CHEST,SINGLE VIEW on DOS: 01/13/21 TECHNIQUE: Frontal and lateral view of the chest was obtained FINDINGS: Lines and Tubes: Cardiac pacemaker projects over left chest wall. Lungs: Small left pleural effusion and left retrocardiac opacity. Cardiomediastinal contours: Unremarkable. Atherosclerotic vascular calcifications of the thoracic aorta are noted. Bones: No acute osseous abnormality. IMPRESSION: Small left pleural effusion and left retrocardiac opacity.
[2025-08-26] MEDS: DOCUMENT DATE & TIME OF BETA-BLOCKER PO ONE (16:00)
[2025-08-27] VITALS (34 sets, daily range): BP systolic 111–193; BP diastolic 59–118; PULSE 67–84; RESP 10–22; TEMP 97.2–98.4; O2SAT 82–98
[~2025-08-27] VITALS: Ht 160 cm; Wt 61.1 kg
[~2025-08-27 05:15] MED LIST changes: -ATOR20TA66 PO; +ATOR40TA72 PO; -FURO-150 PO; +FURO20TA4 PO; +METO-395 PO; -METO-411 PO; -NITR0.4T48 SL; +NITR0.4T51 SL
[2025-08-27] MEDS ORDERED: ondansetron/PF 4mg/2ml inj IV PRN (05:30)
[2025-08-27] MEDS: ringers solution, lacted 1,000 ML IV SCH ×2 (06:24→09:25)
[2025-08-27] MEDS: vancomycin/NS 1 GM ADD-VANTAGE 250 ML IV ONE (06:24)
[2025-08-27] MEDS: ceFAZolin 2gm/dext,iso 50mL 50 ML IV ONE (06:25)
[2025-08-27] MEDS ORDERED: heparin 1,000 UNITS/NS 500ml 1,500 ML ONE (06:37)
[2025-08-27] MEDS ORDERED: LIDOcaine 1% 30ml preserv. free vial ONE (06:37)
[2025-08-27] MEDS ORDERED: midazolam 1 mg/ML 2ml injection ONE (07:16)
[2025-08-27] MEDS ORDERED: protamine sulfate 10mg/ml inj. ONE (07:27)
[2025-08-27] MEDS ORDERED: heparin 1,000unit/ml 10ml vial 10 ML ONE (07:38)
[2025-08-27] MEDS ORDERED: propofol inj 20 ML IV ONE (07:38)
[2025-08-27] MEDS ORDERED: iohexol 350 MG/ML 50ML vial IV ONE (08:29)
[2025-08-27] MEDS ORDERED: tirofiban 12.5mg in NS 250mL 0 ML IV ONE (08:34)
[2025-08-27] MEDS ORDERED: fentaNYL/PF 50MCG/1 ML 2ML syringe ONE (08:42)
[2025-08-27] MEDS ORDERED: APIX5TAB3 PO (08:44)
[2025-08-27] MEDS ORDERED: docusate sod 100mg capsule PO PRN (09:05)
[2025-08-27] MEDS ORDERED: HYDROcodone/acetaminophen 5mg/325mg tablet PO PRN (09:05)
[2025-08-27] MEDS ORDERED: potassium Cl 40MEQ/1/2NS 520ml 520 ML IV PRN (09:05)
[2025-08-27] MEDS ORDERED: pantoprazole 40mg Tablet.DR PO PRN (09:05)
[2025-08-27] MEDS ORDERED: labetalol 20mg/4ml (5mg/ml) syringe IV PRN (09:05)
[2025-08-27] MEDS ORDERED: potassium Cl 20mEq/100mL bag 100 ML IV PRN (09:05)
[2025-08-27] MEDS ORDERED: potassium CL 10mEq/100ml bag 100 ML IV PRN (09:05)
[2025-08-27] MEDS ORDERED: potassium Cl 40MEQ/270ML bag 250 ML IV PRN (09:05)
--- NOTE | 2025-08-27 09:13 | OPERATIVE REPORT ---
Operative Report Providers to CC CC: DIONNE ZUNIGA MD ~ Date of Procedure: Aug 27, 2025 Pre-Operative Diagnosis: Severe Aortic Stenosis Post-Operative Diagnosis SAME as PRE-Op Procedure Performed 1. Ultrasound-guided access, bilateral femoral vessels. 2. Bilateral femoral angiography. 3. Ascending aortography. 4. Temporary transvenous pacer to the RV apex. 5. Balloon Aortic Valvuloplasty with a 23mm balloon 6. Selective Coronary Angiography 7. Placement of a 23 mm Blakely S3 Resilia valve. Surgeon: Kristin Zuniga MD Instructional Technologist MD Dr. 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 They underwent general anesthesia. Ultrasound was used to guide access to the bilateral femoral vessels, 7-[place]izen [place] sheath, left femoral artery, 6-[place] sheath, right femoral artery and left femoral vein. Bilateral femoral angiograms were obtained. Heparin was given to maintain an ACT over 250 seconds. Two irvin-cross Perclose devices were placed on the right. We upsized to an 8- [place] sheath. Two pigtail catheters placed in the ascending aorta. Ascending aortography done to determine the angle of deployment. Temporary transvenous pacer to the RV apex and confirmed capture. We upsized an 8-[place] sheath to a 14-[place] Blakely eSheath on the right. We crossed the aortic valve using a straight stiff exchange length Terumo wire supported by a 6-[place] AL1 catheter. LV AO pressures were recorded. A Cook extra support wire was placed in the left ventricle. Next, a 23mm balloon was brought into position. The anomalous LCx artery was engaged with an MPA catheter. Under rapid ventricular pacing, the ba lloon was inflated(without dye). At full inflation, angiography was performed revealing some pinching but patent LCx. Subsequently, A 23 mm Blakely S3 Resilia valve was brought to position and under rapid right ventricular pacing was deployed. Post-procedure, the LCx was again engaged and revealed to be patent with minimal stenosis. There was trivial AI and no residual . Guidewires and balloons were removed at this time. The temporary pacer was removed. The 14- [place] Blakely eSheath was removed and the Perclose devices tied with adequate hemostasis. The arterial sheath on the left was removed and a single Perclose tied. The venous sheath on the left was removed and a single Angioseal used for hemostasis. Protamine was given to reverse the effects of heparin. The patient was stable post-procedure. Good pulses in the legs and no evidence of bleeding, transferred to the PACU in stable condition. HEMODYNAMICS: Pre: LV: 188/8 mmHg LVEDP: 15mmHg Ao: 144/73, MAP 103mmHg RESULTS: 1. Successful balloon aortic valvuloplasty with a 23 mm balloon. At full inflation, the anomalous LCx was still patent with ALEXANDRA III flow. 2. Successful placement of a 23 mm Blakely S3 Resilia valve, right transfemoral approach, two perclose devices. Repeat evaluation revealed 20-3% stenosis of the mid-LCx with ALEXANDRA III flow. Resume OAC in AM if no signs/symptoms of bleeding. 3. Hypertension: Resume if blood pressure remains stable 4. SSS: s/p PPM, OAC as above 5. 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 Mild narrowing post valve placement. Patient will be watched in the recovery area until stable, then transferred to telemetry at that time. KRISTIN ZUNIGA MD Aug 27, 2025 09:13
[2025-08-27] MEDS: nitroPRUSSIDE (NIPRIDE) (200MCG/ML) 100ML Drip IV SCH (09:25)
[2025-08-27] MEDS: normal saline 1000ml 1,000 ML IV SCH (09:26)
[2025-08-27] MEDS: phenylephrine inj 50 MG in normal saline 250ml IV solN IV SCH (09:43)
[2025-08-27] MEDS: labetalol 20mg/4ml (5mg/ml) syringe IV PRN (09:50)
--- NOTE | 2025-08-27 10:00 | ELECTROCARDIOGRAPH REPORT ---
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 Tyrone Burton Measurements Intervals [place] Rate: 71 P: 48 NV: 201 QRS: -71 QRSD: 161 T: 100 QT: 521 QTc: 567 Interpretive Statements A-V dual-paced complexes w/ some inhibition No further analysis attempted due to paced rhythm Electronically Signed On 08-28-2025 8:46:[address] Tyrone Burton Please click the below link to view image of tracing.
[2025-08-27] MEDS: hydrALAZINE 20mg/ml inj. IV PRN ×2 (10:15→12:36)
[2025-08-27] MEDS: morphine 4 MG/ML inj SYRINge IV PRN (11:00)
[2025-08-27] MEDS: ALPRAZolam 0.25mg tablet PO PRN (11:09)
[2025-08-27] MEDS: enalaprilat 1.25mg/ml 2ml vial IV ONE (11:26)
[2025-08-27] MEDS: ondansetron/PF 4mg/2ml inj IV PRN ×2 (11:32→13:39)
[2025-08-27] MEDS: hydrALAZINE 20mg/ml inj. IV ONE (12:00)
[2025-08-27] MEDS: midazolam 1 mg/ML 2ml injection IV ONE (12:00)
[2025-08-27] MEDS: sod chloride 0.9% 10ml flush syringe IV SCH (16:47)
[2025-08-27] MEDS: ceFAZolin 1GM/D5W- ADD-VANTAGE 50 ML IV SCH (16:47)
--- NOTE | 2025-08-27 16:51 | CARDIOLOGY REPORT ---
APPROVED REPORT EXAM: Focused, limited intraprocedural transthoracic 2D, spectral and color flow Doppler echocardiogram during TAVR deployment. 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 / Surgeon: Tyree Davison MD. / Device rep: Karson Escobar ELS Previous echo: 01/14/25 CVC unk 60% EF ; OLIVER 0.6 ; peak v 4.36 ; grad 70/50 ; LVOT 1.97 ; VHD m-mod TR MR m-mod MAC ; mod LVH ; sept knuckle LEFT VENTRICLE LV appears normal in size with moderate concentric hypertrophy. Overall systolic function appears mildly reduced. LVEF is 45-50%. RIGHT VENTRICLE RV appears severely dilated with normal contractility. Pacemaker wire in right heart. RVSP 58mmHG. AORTIC VALVE Trileaflet AV appears severely calcified with significant stenosis demonstrated by reduced excursion and increased transvalvular and ascending aorta turbulance. Significant calcification of the LVOT. OLIVER: 0.4 cmsq; Pkv: 5.13 m/sec; Gradients: 106/68 mmHG. Trace insufficiency. BAV: 23MM JEFFY balloon x 2 dilitations. POST DEPLOYMENT (LOOP: 47): 23 mm Blakely Ramona 3 Ultra Resilia bioprosthetic TAVR appears well seated with normal function. Multiple trace paravalvular leaks present at 1, 5. 6, 12 o'clock in TTE SAX BASE. OLIVER is measured at 2.34 cmsq. Peak / mean gradients of 11 / 6 mmHG. Peak velocity is measured at 1.77 m/sec. MITRAL VALVE MV is thickened with moderate annular calcification and no significant stenosis. Trace mitral regurgitation. TRICUSPID VALVE The tricuspid valve is normal in structure. Moderate tricuspid regurgitation. PERICARDIUM There is no pericardial effusion. Other Information Study Quality: Adequate
[2025-08-27] MEDS ORDERED: LATA2.5D7 EACHEYE (19:41)
[2025-08-27] MEDS: vancomycin/NS 1 GM ADD-VANTAGE 250 ML IV SCH (19:46)
[2025-08-27] MEDS: sacubitril/valsartan 24mg-26mg tablet PO SCH (19:47)
[2025-08-27] MEDS: metoprolol succinate 25mg (24-HOUR) SR. Tablet PO SCH (21:41)
[2025-08-27] MEDS: latanoprost 0.005% 2.5ml ophthalmic drops EACHEYE SCH (21:46)
[2025-08-28 02:00] VITALS: BP 116/61; PULSE 74; RESP 16; TEMP 97.6; O2SAT 92
--- NOTE | 2025-08-28 06:49 | ELECTROCARDIOGRAPH REPORT ---
[facility] Test Date: 2025-08-28 Test Time: 06:47:33 Pat Name: OTILIO MELGOZA Department: [facility] Room: [place] [address] B Gender: F Director Of Instruction: MARILEE : 1940 Requested By: KRISTIN EMANUEL Order Number: [id number] Reading MD: Dr. KAMILAH Gary Measurements Intervals [place] Rate: 73 P: 67 MN: 210 QRS: -76 QRSD: 150 T: 104 QT: 487 QTc: 537 Interpretive Statements Atrial-sensed ventricular-paced rhythm No further analysis attempted due to paced rhythm Electronically Signed On 08-28-2025 18:04:[address] KAMILAH Gary Please click the below link to view image of tracing.
[2025-08-28 07:00] VITALS: BP 136/69; PULSE 71; RESP 18; TEMP 98.7; O2SAT 93
--- NOTE | 2025-08-28 07:39 | RADIOLOGY REPORT ---
CHEST RADIOGRAPH Indication: s/p TAVR Technique: Single frontal view of the chest was obtained Comparison: DI CHEST,TWO VIEWS on DOS: 08/19/25 FINDINGS: Lines and Tubes: Dual-chamber pacemaker noted. Lungs: Bibasilar airspace disease. Pleura: No effusion. No pneumothorax. Cardiomediastinal contours: Cardiomegaly. Status post TAVR. Bones: No acute osseous abnormality. IMPRESSION: 1. Cardiomegaly. 2. Bibasilar airspace disease.
[2025-08-28 07:48] LABS: MEAN PLATELET VOLUME 8.7 FL (7.4-10.4); RED CELL DISTRIBUTION WIDTH 15.4 % (11.5-14.5)
[2025-08-28 08:00] VITALS: RESP 18; O2SAT 96
[2025-08-28] MEDS ORDERED: non-formulary drug (Ubidecarenone (Co Q-10) 1 CAP) PO SCH (08:00)
[2025-08-28] MEDS: levoTHYROXINE 25mcg tablet PO SCH (08:16)
[2025-08-28] MEDS: multivitamins, therapeutics tablet PO SCH (08:17)
[2025-08-28 08:24] LABS: CREATININE 0.73 MG/DL (0.40-0.90); PRO BRAIN NATRIURETIC PEPTIDE 3554 PG/ML (0-450); TOTAL CARBON DIOXIDE 27.1 MMOL/L (24-32); eCRCL 45 ML/MIN; eGFR 75 ML/MIN
[2025-08-28] MEDS: magnesium sulf-water 2g/50mL 50 ML IV PRN (09:55)
[2025-08-28] MEDS: potassium Cl 20 mEq SR tablet PO PRN (09:55)
[2025-08-28 11:00] VITALS: BP 109/50; PULSE 74; RESP 19; TEMP 97.2; O2SAT 94
[2025-08-28 11:58] VITALS: O2SAT 98
[2025-08-28] MEDS: magnesium sulf-water 4G/100mL 100 ML IV PRN (12:08)
--- NOTE | 2025-08-28 14:59 | DISCHARGE SUMMARY ---
Discharge Summary Providers to CC ~ Discharge Summary Admission Diagnosis: Severe Aortic Stenosis Hospital Course DATE OF ADMISSION: 08/27/25 DATE OF DISCHARGE: 08/28/25 Discharge Diagnosis\Comment: Severe aortic stenosis status post TAVR Operations\Procedures: 1. Ultrasound-guided access, bilateral femoral vessels. 2. Bilateral femoral angiography. 3. Ascending aortography. 4. Temporary transvenous pacer to the RV apex. 5. Balloon Aortic Valvuloplasty with a 23mm balloon 6. Selective Coronary Angiography 7. Placement of a 23 mm Blakely S3 Resilia valve. Consultants: No consultants Complications: No complications Condition on DC: Stable Continued Medications: Apixaban (Eliquis) 5 Mg Tablet 1 TAB PO Q12H for 30 Days, #60 TAB 0 Refills Atorvastatin Calcium (Atorvastatin Calcium) 40 Mg Tablet 1 TAB PO HS Buspirone Hcl* (Buspar*) 5 Mg Tablet 1 TAB PO DAILY Furosemide (Furosemide) 20 Mg Tablet 1 TAB PO DAILY PRN for EDEMA Latanoprost (Latanoprost) 0.005 % Drops 1 DROP EACHEYE HS Levothyroxine Sodium (Levothyroxine Sodium) 50 Mcg Tablet 1 TAB PO DAILY Metoprolol Succinate (Metoprolol Succinate) 25 Mg Tab.sr.24h 150 MG PO HS Multivitamin (Multi Vitamin Daily) 1 Each Tablet 1 TAB PO DAILY for 30 Days, #30 TAB 0 Refills Nitroglycerin SL* (Nitrostat SL*) 0.4 Mg Tablet 1 TAB SL Q5MIN PRN for Chest pain Q5min PRNx3-call Sacubitril/Valsartan (Entresto 24 mg-26 mg Tablet) 24 Mg-26 Mg Tablet 1 TAB PO BID Ubidecarenone (Co Q-10) 10 Mg Capsule 1 CAP PO DAILY, CAP 0 Refills Discharge Summary: Patient with known aortic stenosis presented for planned TAVR. Underwent placement of a 23 mm Blakely S3 resilient valve via the right transfemoral approach. Please see Dr. Fermin Zuniga's dictation for further details on the procedure. Patient was monitored overnight in the telemetry unit. She has remained hemodynamically stable. Up and ambulatory with no complaints of chest pain, pressure, shortness for breath, dizziness, lightheadedness or syncope. Postoperative testing was reviewed by Dr. Fermin Payton and she was deemed stable for discharge home. Physical exam prior to discharge: General: Awake, alert, oriented. No apparent distress Neck: Supple. Normal range of motion. No JVD Respiratory: Lungs are clear to auscultation bilaterally. No respiratory distress. Chest: Normal shape and size. No accessory muscle use. Cardiovascular: Regular rate and rhythm. S1-S2. No murmur, gallop, rub. Gastrointestinal: Abdomen is soft. Nontender to palpation. Bowel sounds present. Extremities: No lower extremity edema, cyanosis or clubbing. Bilateral femoral cath sites with dressings clean dry and intact. No ecchymosis or swelling. No hematoma. Neurologic: Alert and oriented x4. Nonfocal Psychiatric: Normal mood and affect. Skin: Normal color. Warm and dry. Case discussed with Dr. Fermin Zuniga. In agreement with discharge home. *Problems/Diagnosis: (1) Coronary artery disease (2) Hypertension (3) Sick sinus syndrome (4) Aortic stenosis Status: Chronic Total Time Spent on D/C: Up to 30 Minutes Counseling Services Smoking & Tobacco Cessation: N/A MILAGROS WEINBERG NP Aug 28, 2025 14:59
--- NOTE | 2025-08-28 19:36 | CARDIOLOGY REPORT ---
APPROVED REPORT EXAM: Limited 2D, Doppler, and color-flow Echocardiogram. Patient Location: [facility] Blood Pressure: 136/69 mmHg Heart Rate: 72 bpm Rhythm: Paced Indications ONE DAY FOLLOW-UP TAVR 23 mm Blakely Ramona 3 Ultra RESILIA Bioprosthetic TAVR Pacemaker Plant Utility Person: Georgina Zuniga MD Previous echo 08/27/25 [facility] EF 45-50; OLIVER 2.34; Peak v 1.77; Grad 11/6 2D Dimensions LVOT Diameter 2.29 (1.8-2.4cm) IVC 19.96 mm Aortic Valve AoV Peak [place]. 220.3 cm/s AoV VTI 47.6 cm AO Peak GR. 19.4 mmHg AO Mean GR. 11 mmHg LVOT VTI 27.14 cm LVOT Peak [place]. 130.6 cm/s OLIVER(VTI)/BSA 2.35 cm2/m2 OLIVER (VTI) 2.35 cm2 AV DI 0.57 % Mitral Valve MV Peak Gr. 6 mmHg MV PHT 76 ms MVA (PHT) 2.89 cm2 MV VMax 121.1 cm/s Tricuspid Valve TR P. Velocity 349 cm/s RAP ESTIMATE 15 mmHg TR Peak Gr. 49 mmHg RVSP 64 mmHg LEFT VENTRICLE LV appears normal in size with moderate concentric hypertrophy. Overall systolic function appears normal. LVEF is 55%. RIGHT VENTRICLE RV appears moderately dilated with normal contractility. Pacemaker wire in right heart. RVSP is estimated at 64 mmHG. AORTIC VALVE 23 mm Blakely Ramona 3 Ultra RESILIA Bioprosthetic TAVR appears well seated. OLIVER: 2.35 cmsq; Pkv: 2.20 m/sec; Gradients: 19/11 mmHG. Trace paravalvular leak noted at 1, 5 and 7 oclock PSAX TTE. MITRAL VALVE MV is thickened with moderate annular calcification and no stenosis. Trace to mild mitral regurgitation. TRICUSPID VALVE The tricuspid valve is normal in structure. Moderate to severe tricuspid regurgitation. GREAT VESSELS IVC is normal in size and collapses less than 50% with inspiration. PERICARDIUM There is no pericardial effusion. Other Information Study Quality: Adequate Conclusion LV appears normal in size with moderate concentric hypertrophy. Overall systolic function appears normal. LVEF is 55%. RV appears moderately dilated with normal contractility. Pacemaker wire in right heart. RVSP is estimated at 64 mmHG. 23 mm Blakely Ramona 3 Ultra RESILIA Bioprosthetic TAVR appears well seated. OLIVER: 2.35 cmsq; Pkv: 2.20 m/sec; Gradients: 19/11 mmHG. Trace paravalvular leak noted at 1, 5 and 7 oclock PSAX TTE. MV is thickened with moderate annular calcification and no stenosis. Trace to mild mitral regurgitation. The tricuspid valve is normal in structure. Moderate to severe tricuspid regurgitation. There is no pericardial effusion.
--- NOTE | 2025-09-04 07:03 | OPERATIVE REPORT ---
Operative Report Providers to CC CC: KRISTIN ZUNIGA MD; LEONCIO PAYTON MD ~ Date of Procedure: Aug 27, 2025 Pre-Operative Diagnosis: Severe Aortic Stenosis, anomalous left circumflex coronary artery Post-Operative Diagnosis SAME as PRE-Op Procedure Performed 1. Transcatheter aortic valve replacement with 23 mm Blakely S3 Resilia valve model [id number] 2. Ultrasound-guided micropuncture access to femoral vessels for sheath placement: 6 Italian sheath right femoral artery later upsized to 14 Italian E sheath, 7 Italian sheath left femoral artery, 6 Italian sheath left femoral vein 3. Bilateral femoral angiography 4. Ascending aortography 5. Temporary transvenous pacemaker to right ventricular apex placement and later removal 6. Balloon Aortic Valvuloplasty with a 23mm balloon 7. Selective Coronary Angiography Surgeon: Frank Davison MD, PhD, [facility] [employer] Plant Operators Supervisor Interventional cardiologists: 1. Kristin Zuniga MD 2. Leoncio Payton MD Anesthesiologist: Iam Talbot Type of Anesthesia: General Findings: Severe Aortic Stenosis Anomalous left circumflex coronary artery Complications None Prosthetics\Implants used: 23 mm Blakely Ramona 3 Resilia TAVR valve Estimated Blood Loss: Minimal Specimen Removed: None Description of Procedure: The patient was brought to the lab courier, placed supine on the imaging table, and underwent general anesthesia. The patient was prepped and draped in sterile fashion. A radial arterial line was placed for continuous blood pressure monitoring. Ultrasound was used to guide access to the bilateral femoral vessels using micro puncture and modified Seldinger technique. A 7 Italian sheath was placed in the above femoral artery, and a 6 Italian sheath in the above femoral artery and vein. Bilateral femoral angiograms were obtained. Intravenous heparin was administered to maintain an ACT over 250 seconds. Two Perclose sutures were pre-placed in the working femoral artery for later closure following Esheath removal. The above working femoral artery access was upsized from a 6 Italian to an 8 Italian sheath. An angled pigtail catheter was advanced through the 7 Italian arterial sheath and parked in the right sinus of Valsalva to visualize the plane of the aortic annulus. A 2nd pigtail catheter was advanced through the 8 Italian arterial sheath into the ascending aorta. Aortography was performed to determine the final angles of deployment compared to those which had been calculated from the TAVR computed tomography images. A temporary balloon tipped transvenous pacemaker was advanced through the venous sheath to the right ventricular apex and capture was confirmed. The 8 Italian arterial sheath was upsized to the Blakely E sheath through which the aortic valve was crossed using a straight stiff exchange length Terumo wire supported by a 6 Italian AL1 catheter. Left ventricular and aortic pressures were recorded. And extra support Cook wire with custom hand curling of the J-tip to match the internal dimensions of the apical left ventricle was advanced into the left ventricle. Next, a 23mm balloon was brought into position. The anomalous left circumflex coronary artery was engaged with an MPA catheter. Under rapid ve ntricular pacing, the balloon was inflated(without dye). At full inflation, angiography was performed revealing some pinching but patent left circumflex coronary artery. The above-listed Blakely TAVR valve with distal valve skirt confirmed was crimped onto the delivery device. The delivery device was advanced over the wire in the Esheath to the thoracic aorta where the TAVR balloon was then retracted into position inside the TAVR valve. The device was 50% retroflexed for travel through the aortic arch, and the TAVR valve positioned in the little traverse aortic valve at the annulus. Right ventricular pacing at 180 beats per minute was initiated, the systolic blood pressure dropped below 50 mmHg, and the valve was deployed after full balloon inflation for 4 seconds taking care to ensure inflation pressure did not exceed 8 mmHg. Rapid balloon deflation was performed, rapid pacing discontinued, and hemodynamics recovered without incident. Transthoracic echocardiography was performed. Post procedure, there was trivial AI and no residual and no pericardial effusion. Catheters, guidewires, and the delivery device were removed at this time. The temporary transvenous pacer was removed. The Blakely Esheath was removed and the 2 pre-placed Perclose sutures were tied with adequate hemostasis. The 7 Italian arterial sheath was removed and a single Perclose suture was deployed and tied. The venous sheath was removed and a single Angio-Seal deployed for hemostasis. Protamine was given to reverse the effects of heparin. Lower extremity pulses were present bilaterally with no evidence bleeding at the vascular access sites. The patient was transferred to the PACU in stable condition. Counts repoted as correct: Yes REGULO,FRANK Pena MD Sep 04, 2025 07:03
== END 2025-08-28 15:20 | disposition home or self-care (01) | DRG 267 ==
LOC: PAS IN 05:15 → PCU 3S 12:15
PROVIDERS: ADMIT Internal Medicine Cardiovascular Disease; ATTEND Internal Medicine Cardiovascular Disease
PROC: B2111ZZ Fluoroscopy of Multiple Coronary Arteries using Low Osmolar Contrast (ICD-10-PCS; 2025-08-27)
PROC: B41D1ZZ Fluoroscopy of Aorta and Bilateral Lower Extremity Arteries using Low Osmolar Contrast (ICD-10-PCS; 2025-08-27)
PROC: 02RF38Z Replacement of Aortic Valve with Zooplastic Tissue, Percutaneous Approach (ICD-10-PCS; principal; 2025-08-27 07:11)
DX: I35.0 Nonrheumatic aortic (valve) stenosis (principal); Z00.6 Encounter for examination for normal comparison and control in clinical research program; I25.10 Atherosclerotic heart disease of native coronary artery without angina pectoris; I49.5 Sick sinus syndrome; I10 Essential (primary) hypertension; Z79.01 Long term (current) use of anticoagulants
CPT/HCPCS: 33361; 36415; 71045; 71046; 76937; 80053; 81001; 82948; 83735; 83880; 84443; 85025; 85347; 85610; 85730; 86885; 86900; 86901; 86920; 87081; 93005; 93308; A4615; A4618; A6258; A6449; C1751; C1756; C1760; C1769; C1894; G0378; J0360; J0690; J1644; J2003; J2250; J2270; J2371; J2405; J2704; J2720; J3010; J3246; J3373; J3475; J3490; J7030; J7040; J7050; J7120; Q9967